=== PATIENT | male | born 1940 | race Caucasian/White ===

== ENCOUNTER 2019-06-17 06:19 | Day surgery (SDC) | payer OTHER ==
[~2019-06-17] VITALS: Ht 172.7 cm; Wt 91.0 kg
[~2019-06-17 06:19] MED LIST: ALLO300 PO; AMLO5; ASPI325; ATOR20 PO; Aspir 8181 MG PO; Cinnamon500 MG; LISI20; LOSA25 PO; METO25ER PO; NITRO-DUR1 EAC1 TOP
--- NOTE | 2019-06-17 10:00 | NUR ---
TR BAND HAS BEEN FULLY DEFLATED ON RIGHT RADIAL SITE. NO BLEEDING, SWELLING, PAIN, OR BRUISING. HEPARIN DRIP STARTED PER TRANSFER ORDERS FROM DR YEBOAH. PT DENIES CHEST PAIN OR DISCOMFORT. SPOUSE AT BEDSIDE, VSS. WAITING FOR EMS CREW TO ARRIVE FOR PT TRANSPORT TO [facility].
--- NOTE | 2019-06-17 10:30 | NUR ---
PT OUT TO AMBULANCE VIA GURNEY, ACCOMPANIED BY EMS CREW. HEPARIN INFUSING AT TIME OF TRANSFER. RIGHT RADIAL SITE SOFT, NON-TENDER. NO BLEEDING OR BRUISING NOTED AT SITE. TR BAND REMAINS IN PLACE, BUT DEFLATED IN CASE OF BLEEDING WHILE ON HEPARIN DRIP. PT DENIES ANY CHEST PAIN OR DISCOMFORT AT TIME OF TRANSFER.
== END 2019-06-17 11:00 | disposition short-term general hospital (02) ==
LOC: MHTC 06:19
PROC: 4A023N7 Measurement of Cardiac Sampling and Pressure, Left Heart, Percutaneous Approach (ICD-10-PCS; principal; 2019-06-17)
PROC: B201YZZ Plain Radiography of Multiple Coronary Arteries using Other Contrast (ICD-10-PCS; principal; 2019-06-17)
DX: I25.118 Atherosclerotic heart disease of native coronary artery with other forms of angina pectoris (principal); I11.0 Hypertensive heart disease with heart failure; I50.9 Heart failure, unspecified; E66.9 Obesity, unspecified; E78.00 Pure hypercholesterolemia, unspecified; E78.5 Hyperlipidemia, unspecified; Z79.82 Long term (current) use of aspirin; Z79.899 Other long term (current) drug therapy; Z88.8 Allergy status to other drugs, medicaments and biological substances; K21.9 Gastro-esophageal reflux disease without esophagitis; E88.81 Metabolic syndrome and other insulin resistance; Z68.30 Body mass index [BMI] 30.0-30.9, adult
CPT/HCPCS: 93458; 99152; C1769; C1894; J1644; J2250; J3010; J7030; Q9967

== ENCOUNTER 2024-05-19 21:19 | Emergency (ER) | payer OTHER ==
[~2024-05-19] VITALS: Ht 172.7 cm; Wt 81.7 kg
[2024-05-20 03:17] VITALS: BP 168/98
== END 2024-05-20 03:18 | disposition home or self-care (01) ==
LOC: ER 21:19
DX: T83.091A Other mechanical complication of indwelling urethral catheter, initial encounter (principal); I10 Essential (primary) hypertension
CPT/HCPCS: 99283